=== PATIENT | male | born 1995 | race American Indian/Alaskan Native ===

== ENCOUNTER 2016-10-06 16:38 | Emergency (ER) | payer SELFPAY ==
--- NOTE | 2016-10-06 18:14 | XRay Report ---
FINAL REPORT EXAM: XR ANKLE 3+V RT HISTORY: RT ANKLE injury with swelling/pain. COMPARISONS: None. FINDINGS: Three nonweightbearing views right ankle Intact ankle mortise. No bone lesion, periosteal reaction, or fracture. No deformity or gross malalignment. IMPRESSION: No fracture involving the right ankle. Consider additional imaging for worsening/persistent symptoms.
[2016-10-06] MEDS ORDERED: MOTRIN PO ONE (18:55)
--- NOTE | 2016-10-06 20:10 | XRay Report ---
FINAL REPORT EXAM: XR FOOT 3+V RT HISTORY: pain and swelling COMPARISONS: Right ankle radiographs of the same date FINDINGS: Three nonweightbearing views right foot No bone lesion, periosteal reaction, or fracture. No deformity or gross malalignment. IMPRESSION: Unremarkable nonweightbearing radiographs of the right foot. Consider additional imaging for worsening/persistent symptoms.
[2016-10-06 22:37] VITALS: BP 134/71
== END 2016-10-06 22:37 | disposition home or self-care (01) ==
LOC: ED 16:38
DX: S99.921A Unspecified injury of right foot, initial encounter (principal); M79.671 Pain in right foot; F90.9 Attention-deficit hyperactivity disorder, unspecified type; F17.200 Nicotine dependence, unspecified, uncomplicated; Z91.018 Allergy to other foods; Z88.6 Allergy status to analgesic agent; X58.XXXA Exposure to other specified factors, initial encounter; Y93.89 Activity, other specified; Y99.8 Other external cause status; Y92.099 Unspecified place in other non-institutional residence as the place of occurrence of the external cause
CPT/HCPCS: 99284